=== PATIENT | male | born 1935 | race Caucasian/White ===

== ENCOUNTER 2018-02-09 17:56 | Inpatient (IN) | payer MEDICARE, OTHER ==
[~2018-02-09] VITALS: Ht 179 cm; Wt 98.0 kg
--- NOTE | ~2018-02-09 | DS ---
[place], [place] DISCHARGE SUMMARY [id number] UN[facility] #: [id number] ROOM: 312 DOCTOR: FREDDIE VENTURA MD BIRTHDATE: [birth year] DOS: 02/16/2018 DATE OF ADMISSION: 02/10/2018 DATE OF DISCHARGE: 02/16/2018 CHIEF COMPLAINT: "I'm just here for a checkup." HISTORY OF PRESENT ILLNESS: This is an 82-year-old white male who resides at [facility]. The patient was admitted to the [facility] due to sexually inappropriate behavior. The patient has been apparently masturbating in front of staff and touching female nurses inappropriately. The patient does not voice doing this, but this has become increasingly problematic and that the masturbation has also been occurring in front of visitors on the unit. Attempts to redirect him to his room have not been successful. He is admitted now to rule out any organic factors, to attempt to stabilize on medication, to engage in individual and coyne milieu activity with the ultimate plan to return back to the least restrictive environment when psychiatrically stable. SUMMARY OF THE HOSPITAL COURSE: The patient was admitted to the unit where his Cymbalta and Namzaric were both discontinued due to ineffectiveness. Because he was already on a therapeutic dose of the Namenda, he was restarted on Namenda 10 mg twice daily. Celexa was added at a dose of 20 mg a day to combat the depression and also to decrease his libido and decrease the sexual acting out. Exelon patch was utilized instead of the Aricept to improve and maintain ADLs, behavior and cognition. Exelon patch was gradually increased to its maximum dose of 13.3 mg a day with good results and without any apparent side effects. Routine screening examinations did reveal him to have a vitamin D deficiency and a low normal vitamin B12 level, so vitamin B12 1000 mcg IM monthly was started along with vitamin D 50,000 International Units weekly. With this combination of medication, the patient's behavior dissipated. The frequency and intensity of the public masturbation decreased and he was able to be redirected more appropriately to his room. He became much more compliant and interactive with staff. His ability to engage improved. He had improved sufficiently by 02/16/2018 to return back to [facility]. MENTAL STATUS AT DISCHARGE: The patient is alert and oriented to person, place, and approximate to time. Mood does seem to be strongly trending towards euthymia and he is able to joke and laugh. He engages easily in conversation and is spontaneous. There is no symptom suggestive of hypomania or gloria. There is no gross psychotic symptomatology. Short term memory continues to have gaps. DISCHARGE DIAGNOSES: Impulse control disorder, not otherwise specified, and Alzheimer's dementia. PLAN: All of his prescriptions have been printed. He will return to [facility]. Well I will be his psychiatrist of record. At the time of discharge, he is medically and psychiatrically stable and his biopsychosocial needs are adequately being met by the staff at [facility]. [place], [place] DISCHARGE SUMMARY NAME: ENOC OROZCO UNIT #: [id number] ROOM: [facility] DOCTOR: FREDDIE VENTURA MD BIRTHDATE: [birth year] FREDDIE VENTURA MD CM:DISCHARG 09 [id number] FREDDIE VENTURA MD 02/16/18 1003 interface
--- NOTE | ~2018-02-09 | PN ---
[place], [place] PROGRESS NOTE NAME: ENOC OROZCO UNIT #: [id number] ROOM: 312 DOCTOR: FREDDIE VENTURA MD BIRTHDATE: [birth year] DATE: 02/15/18 ADDENDUM 03/29/18934 DR. VENTURA: Above note reviewed. Agree with observations, recommendations, and overall treatment plan. FREDDIE VENTURA MD CM:PNTRANS FREDDIE VENTURA MD 03/30/18 0559 YESSICA JAMIL MIS.LLR
--- NOTE | ~2018-02-09 | PN ---
[place], [place] PROGRESS NOTE NAME: ENOC OROZCO UNIT #: [id number] ROOM: 312 DOCTOR: FREDDIE VENTURA MD BIRTHDATE: [birth year] DATE: 02/14/18 ADDENDUM 03/29/1835 DR. VENTURA: Above note reviewed. Agree with observations, recommendations, and overall treatment plan. FREDDIE VENTURA MD CM:PNTRANS 0558 FREDDIE VENTURA MD 03/30/18 0559 YESSICA JAMIL MIS.LLR
--- NOTE | ~2018-02-09 | PN ---
[place], [place] PROGRESS NOTE NAME: ENOC OROZCO UNIT #: [id number] ROOM: 312 DOCTOR: FREDDIE VENTURA MD BIRTHDATE: [birth year] DATE: 02/13/18 ADDENDUM 03/29/18934 DR. VENTURA: Above note reviewed. Agree with observations, recommendations, and overall treatment plan. FREDDIE VENTURA MD CM:PNTRANS FREDDIE VENTURA MD 03/30/18 0558 YESSICA JMAIL MIS.LLR
--- NOTE | ~2018-02-09 | PR ---
[place], [place] PROGRESS NOTE NAME: ENOC OROZCO UNIT #: [id number] ROOM: 312 DOCTOR: FREDDIE VENTURA MD BIRTHDATE: [birth year] DOS: 02/12/2018 INTERVAL NOTE CHIEF COMPLAINT: "Good morning, how are you?" SUMMARY OF THE VISIT: The patient was interviewed as he was sitting waiting for his breakfast to come. He engaged readily in conversation. He denied having any issues stating that he slept well. He could not tell me how long he had been here, nor could he remember if he had breakfast yet or not. MENTAL STATUS: He is alert and oriented with time gaps. Mood does seem to be rather depressed with some anxious overtones. There is no gloria or hypomania. There are no gross psychotic symptoms. Short term memory is very problematic. PLAN: His vitamin D level is low at 27, so I will augment with vitamin D 50,000 International Units weekly. Folic acid level likewise is low at 4.98. So, I will use folic acid, vitamin B complex 1 daily. His vitamin B12 level is low normal at 334, so I will give vitamin B12 injection 1000 mcg IM monthly. We will continue to engage in individual and coyne milieu activity. Consider augmenting his Celexa with either Provera or Depakote to decrease some of the sexual inappropriate behavior, returning then to the least restrictive environment when stable. FREDDIE VENTURA MD CM:PNTRANS 3 36 FREDDIE VENTURA MD 02/12/182134 interface
[2018-02-09] MEDS ORDERED: AMLODIPINE BESY10 MG PO (18:10)
[2018-02-09] MEDS ORDERED: ASPIR LOW81 MG PO (18:10)
[2018-02-09] MEDS ORDERED: CYMBALTA20 M1 PO (18:11)
[2018-02-09] MEDS ORDERED: ZESTORETIC 10-1 EACH PO (18:12)
[2018-02-09] MEDS ORDERED: NAMZARIC 28 MG1 EACH PO (18:12)
[2018-02-09] MEDS ORDERED: FINASTERIDE5 M1 PO (18:13)
[2018-02-09] MEDS ORDERED: HUMALOG100 UNIT/1 SQ (18:17)
[2018-02-09] MEDS ORDERED: KLOR-CON M2020 ME1 PO (18:17)
[2018-02-09] MEDS ORDERED: LASIX20 MG PO (18:18)
[2018-02-09] MEDS ORDERED: SYNTHROID25 MCG PO (18:18)
[2018-02-09] MEDS ORDERED: ELIQUIS5 M1 PO (18:19)
[2018-02-09] MEDS ORDERED: TAMSULOSIN HCL0.4 MG PO (18:19)
[2018-02-09] MEDS ORDERED: GLUCOPHAGE500 M1 PO (18:20)
[2018-02-09] MEDS ORDERED: BACLOFEN20 M1 PO (18:21)
[2018-02-09] MEDS ORDERED: ALBUTEROL S5 MG/1 ML INH (18:22)
[2018-02-09] MEDS ORDERED: ASPERCREME 1035.4 GM TP (18:24)
[2018-02-09] MEDS ORDERED: ADVIL200 M1 PO (18:25)
[2018-02-09] MEDS ORDERED: ASPERCREME 1035.4 GM T (18:25)
[2018-02-09] MEDS ORDERED: Meclizine25 MG PO (18:26)
[2018-02-09] MEDS ORDERED: MORPHINE S20 MG/1 M1 SL (18:27)
[2018-02-10 16:51] VITALS: BP 119/59
[2018-02-10 17:35] VITALS: BP 119/59
[2018-02-10 20:14] VITALS: BP 124/63
[2018-02-11 07:38] LABS: BASO % 0.4 % (0.0-1.0); EOS # 0.2 10*3/uL (0.0-0.4); HEMATOCRIT 34.9 % (42.0-52.0); HEMOGLOBIN 11.2 g/dl (14.0-18.0); LYMPH # 2.9 10*3/uL (1.3-4.4); LYMPH % 35.6 % (27.0-41.0); MEAN CELL VOLUME 88.6 fl (80.0-94.0); MEAN CORPUSCULAR HGB 28.4 pg (27.0-31.0); MEAN CORPUSCULAR HGB CONC 32.1 g/dl (33.0-37.0); MONO # 0.6 10*3/uL (0.1-1.0); MONO % 7.7 % (3.0-9.0); NEUT # 4.3 10*3/uL (2.3-7.9); NEUT % 53.9 % (47.0-73.0); PLATELET COUNT AUTOMATED 202 10*3/uL (130-400); RED BLOOD COUNT 3.94 10*6/uL (4.50-5.90); RED CELL DISTRI WIDTH 13.8 % (0-14.5)
[2018-02-11 07:40] VITALS: BP 121/71
[2018-02-11 08:04] LABS: ALBUMIN 2.9 gm/dl (3.1-4.5); ALKALINE PHOSPHATASE 74 U/L (45-117); BUN 14 mg/dl (7-24); CHLORIDE 101 mmol/L (98-107); CHOLESTEROL 171 mg/dL (<200); HDL CHOLESTEROL 46 mg/dl (40-60); LDL CHOLESTEROL 91 mg/dL (9-159); POTASSIUM 3.6 mmol/L (3.5-5.1); SGOT/AST 35 IU/L (3-35); SGPT/ALT 39 U/L (12-78); SODIUM 139 mmol/L (136-145); TOTAL PROTEIN 6.2 gm/dL (6.4-8.2); TRIGLYCERIDES 170 mg/dl (<150); VLDL CHOLESTEROL 34 mg/dL (6-40)
[2018-02-11 16:31] LABS: BILIRUBIN NEGATIVE (NEGATIVE); BLOOD NEGATIVE (NEGATIVE); CLARITY CLEAR (CLEAR); COLOR YELLOW (YELLOW); GLUCOSE NEGATIVE (NEGATIVE); KETONE NEGATIVE (NEGATIVE); LEUKO ESTERASE TRACE (NEGATIVE); NITRITE NEGATIVE (NEGATIVE); SPECIFIC GRAVITY 1.015 (1.005-1.030); UROBILINOGEN 0.2 E.U./dl (0.2-1.0)
[2018-02-11 16:41] LABS: RBC 0-2 rbc/hpf (0-2)
[2018-02-11 20:00] VITALS: BP 135/53
[2018-02-12 08:10] VITALS: BP 140/76
[2018-02-12 19:55] VITALS: BP 127/60
[2018-02-13 07:47] VITALS: BP 137/67
[2018-02-13 20:10] VITALS: BP 142/70
[2018-02-14 07:50] VITALS: BP 131/55
[2018-02-14 20:06] VITALS: BP 130/53
[2018-02-15 07:20] VITALS: BP 122/56
[2018-02-15 20:00] VITALS: BP 124/68
[2018-02-16 08:18] VITALS: BP 136/55
[2018-02-16] MEDS ORDERED: B121000 MCG/1 IM (09:02)
[2018-02-16] MEDS ORDERED: EXELON13.3 MG/21 T (09:02)
[2018-02-16] MEDS ORDERED: CITALOPRAM20 MG PO (09:02)
[2018-02-16] MEDS ORDERED: MEMANTINE HCL10 MG PO (09:02)
[2018-02-16] MEDS ORDERED: FOLGARD TABLET1 EACH PO (09:02)
[2018-02-16] MEDS ORDERED: Zostrix 0.1% T (09:02)
[2018-02-16] MEDS ORDERED: Vitamin D PO (09:02)
== END 2018-02-16 14:30 | DRG 885 ==
LOC: EDSEX → 3N
PROVIDERS: Psychiatry & Neurology Psychiatry; Registered Nurse
DX: F23 Brief psychotic disorder (principal); E11.65 Type 2 diabetes mellitus with hyperglycemia; I27.82 Chronic pulmonary embolism; F02.81 Dementia in other diseases classified elsewhere, unspecified severity, with behavioral disturbance; F63.9 Impulse disorder, unspecified; G30.9 Alzheimer's disease, unspecified; Z99.81 Dependence on supplemental oxygen; D64.9 Anemia, unspecified; E03.9 Hypothyroidism, unspecified; F32.9 Major depressive disorder, single episode, unspecified; E66.9 Obesity, unspecified; N40.0 Benign prostatic hyperplasia without lower urinary tract symptoms; M19.90 Unspecified osteoarthritis, unspecified site; G89.29 Other chronic pain; Z86.73 Personal history of transient ischemic attack (TIA), and cerebral infarction without residual deficits; Z90.49 Acquired absence of other specified parts of digestive tract; Z88.6 Allergy status to analgesic agent; Z88.1 Allergy status to other antibiotic agents; Z91.040 Latex allergy status; Z88.0 Allergy status to penicillin; Z91.048 Other nonmedicinal substance allergy status; Z79.82 Long term (current) use of aspirin; Z79.4 Long term (current) use of insulin; Z68.30 Body mass index [BMI] 30.0-30.9, adult

== ENCOUNTER 2018-02-10 13:11 | Emergency (ER) | payer MEDICARE ==
[~2018-02-10] VITALS: Wt 98.0 kg
[~2018-02-10 13:11] MED LIST: ADVIL200 M1 PO; ALBUTEROL S5 MG/1 ML INH; AMLODIPINE BESY10 MG PO; ASPERCREME 1035.4 GM T; ASPERCREME 1035.4 GM TP; ASPIR LOW81 MG PO; BACLOFEN20 M1 PO; CYMBALTA20 M1 PO; ELIQUIS5 M1 PO; FINASTERIDE5 M1 PO; GLUCOPHAGE500 M1 PO; HUMALOG100 UNIT/1 SQ; KLOR-CON M2020 ME1 PO; LASIX20 MG PO; MORPHINE S20 MG/1 M1 SL; Meclizine25 MG PO; NAMZARIC 28 MG1 EACH PO; SYNTHROID25 MCG PO; TAMSULOSIN HCL0.4 MG PO; ZESTORETIC 10-1 EACH PO
[2018-02-10 14:09] LABS: BUN 16 mg/dl (7-24); CHLORIDE 104 mmol/L (98-107); CREATININE 0.82 mg/dL (0.70-1.30); POTASSIUM 3.6 mmol/L (3.5-5.1); SODIUM 141 mmol/L (136-145)
[2018-02-10 14:11] LABS: ETHYL ALCOHOL < 3.0 mg/dl (<3)
[2018-02-10 14:12] LABS: ACETAMINOPHEN (TYLENOL) < 2.0 ug/ml (10-30)
[2018-02-10 14:23] LABS: BASO % 0.3 % (0.0-1.0); EOS # 0.1 10*3/uL (0.0-0.4); EOS % 1.5 % (1.0-4.0); HEMATOCRIT 38.6 % (42.0-52.0); HEMOGLOBIN 12.3 g/dl (14.0-18.0); LYMPH # 3.1 10*3/uL (1.3-4.4); LYMPH % 34.1 % (27.0-41.0); MEAN CELL VOLUME 89.1 fl (80.0-94.0); MEAN CORPUSCULAR HGB 28.4 pg (27.0-31.0); MEAN CORPUSCULAR HGB CONC 31.9 g/dl (33.0-37.0); MEAN PLATELET VOLUME 11.1 fl (9.6-12.3); MONO # 0.7 10*3/uL (0.1-1.0); MONO % 7.3 % (3.0-9.0); NEUT # 5.2 10*3/uL (2.3-7.9); NEUT % 56.5 % (47.0-73.0); PLATELET COUNT AUTOMATED 208 10*3/uL (130-400); RED BLOOD COUNT 4.33 10*6/uL (4.50-5.90); RED CELL DISTRI WIDTH 13.8 % (0-14.5); WHITE BLOOD COUNT 9.2 10*3/uL (4.8-10.8)
[2018-02-10 14:50] LABS: BILIRUBIN NEGATIVE (NEGATIVE); BLOOD NEGATIVE (NEGATIVE); CLARITY CLEAR (CLEAR); COLOR YELLOW (YELLOW); GLUCOSE NEGATIVE (NEGATIVE); KETONE NEGATIVE (NEGATIVE); LEUKO ESTERASE NEGATIVE (NEGATIVE); NITRITE NEGATIVE (NEGATIVE); SPECIFIC GRAVITY 1.015 (1.005-1.030); UROBILINOGEN 0.2 E.U./dl (0.2-1.0)
[2018-02-10 14:58] LABS: URINE AMPHETAMINES < 1000 (1000ng/ml); URINE BARBITURATES < 200 (200ng/ml); URINE BENZODIAZEPINES < 200 (200ng/ml); URINE CANNABINOIDS (THC) < 50 (50ng/ml); URINE COCAINE < 300 (300ng/ml); URINE METHADONE < 300 (300ng/ml); URINE OPIATES < 300 (300ng/ml)
[2018-02-10 15:02] LABS: URINE PHENCYCLIDINE < 25 (25ng/ml)
[2018-02-10 15:06] LABS: WBC 0-2 wbc/hpf (0-5)
== END 2018-02-10 16:00 | disposition home health service (06) ==
LOC: ED
PROVIDERS: Emergency Medicine
DX: F63.89 Other impulse disorders (principal); Z79.899 Other long term (current) drug therapy; Z79.82 Long term (current) use of aspirin; Z88.0 Allergy status to penicillin; Z88.1 Allergy status to other antibiotic agents; Z88.6 Allergy status to analgesic agent; Z91.040 Latex allergy status; Z79.4 Long term (current) use of insulin